=== PATIENT | male | born 1960 | race Caucasian/White ===

== ENCOUNTER 2019-04-01 07:20 | Emergency (ER) | payer BC ==
[~2019-04-01] VITALS: Ht 180.3 cm; Wt 104.3 kg
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
[2019-04-01] MEDS ORDERED: DIAZEPAM 5 MG TABLET ONE (07:49)
[2019-04-01] MEDS ORDERED: KETOROLAC TROMETHAMINE INJ 60 MG/2 ML VIAL IM ONE (07:49)
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
[2019-04-01] MEDS: KETOROLAC TROMETHAMINE INJ 60 MG/2 ML VIAL IM ONE ×2 (07:56→08:02)
[2019-04-01] MEDS: DIAZEPAM 5 MG TABLET PO ONE ×2 (07:56→08:02)
--- NOTE | 2019-04-01 08:45 | NUR ---
Patient discharged to home in stable condition. Written and verbal after care instructions given. Patient verbalizes understanding of instruction.
[2019-04-01 08:46] VITALS: BP 148/99
== END 2019-04-01 08:47 | disposition home or self-care (01) ==
LOC: ER 07:24
DX: M25.462 Effusion, left knee (principal); M62.838 Other muscle spasm; Z98.890 Other specified postprocedural states; V49.49XA Driver injured in collision with other motor vehicles in traffic accident, initial encounter; Y93.89 Activity, other specified; Y92.413 State road as the place of occurrence of the external cause; Y99.8 Other external cause status
CPT/HCPCS: 73564; 96372; 99283; J1885